=== PATIENT | female | born 1965 | race African-American/Black ===

== ENCOUNTER → 2017-03-13 | Outpatient (CLI) | payer OTHER ==
[~2017-03-13] MED LIST: ADVITAB3 PO; CART120C PO; CYCL10TA PO; DICY20TA10 PO; MAPA500C PO; PAMA50CA PO; PERI PO; TELM1TAB PO; VITA100064 PO
[2017-03-13 12:30] LABS: AUTOMATED NEUTROPHIL # 3.1 TH/MM3 (1.8-7.7); BASOPHIL % 0.7 % (0.0-2.0); EOSINOPHIL # 0.2 TH/MM3 (0-0.4); EOSINOPHIL % 2.5 % (0.0-4.0); HEMATOCRIT 40.8 % (35.0-46.0); HEMO FLAGS DIFF FINAL; LYMPH % 37.7 % (9.0-44.0); LYMPHOCYTE # 2.3 TH/MM3 (1.0-4.8); MEAN CORPUSCULAR HEMOGLOBIN 28.9 PG (27.0-34.0); MONO % 8.1 % (0.0-8.0); PLATELET COUNT 225 TH/MM3 (150-450); RED BLOOD COUNT 4.81 MIL/MM3 (4.00-5.30); RED CELL DISTRIBUTION WIDTH 14.6 % (11.6-17.2); WHITE BLOOD COUNT 6.2 TH/MM3 (4.0-11.0)
--- NOTE | 2017-03-13 12:46 | RADRPT ---
EXAM DATE/TIME: 03/13/2017 11:49 [place] COMPARISON: No previous studies available for comparison. INDICATIONS : Evaluate for pneumonia,pneumothorax and communicable diseases. Pre-op hysterectomy MEDICAL HISTORY : Hypertension. SURGICAL HISTORY : None. ENCOUNTER: Initial ACUITY: 1 day PAIN SCORE: 0/10 LOCATION: chest FINDINGS: PA and lateral views of the chest demonstrate the lungs to be symmetrically aerated without evidence of mass, infiltrate or effusion. The cardiomediastinal contours are unremarkable. Osseous structure s are intact. CONCLUSION: No acute disease. Kamar Hernandez MD on March 13, 2017 at 12:44 Board Certified Radiologist. This report was verified electronically.
[2017-03-13 12:57] LABS: BICARBONATE 28.7 MEQ/L (21.0-32.0); POTASSIUM 3.3 MEQ/L (3.5-5.1)
[2017-03-13 13:10] LABS: BLOOD, URINE TRACE (NEG); GLUCOSE,URINE NEG (NEG); KETONE, URINE NEG (NEG); MUCUS URINE FEW /lpf (OCC); NITRITE,URINE NEG (NEG); PH, URINE 6.5 (5.0-8.5); SQUAMOUS EPITHELIAL CELL URINE 1 /hpf (0-5); URINE COLOR LIGHT-YELLOW (YELLW/STRAW)
--- NOTE | 2017-03-13 15:13 | EKG ---
Date Performed: 03/13/2017 Time Performed: 11:15:02 PTAGE: 52 years EKG: Sinus rhythm LEFT ANTERIOR FASCICULAR BLOCK VOLTAGE CRITERIA FOR LVH ABNORMAL ECG NO PREVIOUS TRACING DOCTOR: Indira Morgan Interpretating Date/Time 03/13/2017 15:11:48
== END ==
LOC: CPRE 10:47
PROVIDERS: ATTEND Obstetrics & Gynecology
DX: Z01.810 Encounter for preprocedural cardiovascular examination (principal); Z01.811 Encounter for preprocedural respiratory examination; Z01.812 Encounter for preprocedural laboratory examination; R10.2 Pelvic and perineal pain; R94.31 Abnormal electrocardiogram [ECG] [EKG]
CPT/HCPCS: 36415; 71020; 80048; 81001; 85025; 93005

== ENCOUNTER 2017-03-19 05:32 | Observation (INO) | payer OTHER ==
[~2017-03-19] VITALS: Ht 172.7 cm; Wt 100.5 kg
[~2017-03-19 05:32] MED LIST changes: -PERI PO
[2017-03-19] MEDS ORDERED: POVIDONE IODINE 5% (ANTISEPSIS KIT) 4 APPLICATIONS EACH NARE PRN (06:45)
[2017-03-19] MEDS ORDERED: CHLORHEXIDINE GLUCONATE 2 % 1 PACK (2 CLOTHS) TOPICAL PRN (06:45)
[2017-03-19] MEDS ORDERED: SODIUM CHLORID 0.9% 500 ML IV PRN (06:45)
[2017-03-19] MEDS ORDERED: LACTATED RINGER'S 1000 ML IV PRN (06:45)
[2017-03-19] MEDS ORDERED: METOPROLOL TARTRATE 25 MG TAB PO PRN (06:45)
[2017-03-19] MEDS ORDERED: ACETAMINOPHEN 1000 MG/100 ML 100 ML IV ONE (06:47)
[2017-03-19] MEDS ORDERED: ceFAZolin 2 GM PREMIX 50 ML ONE (07:17)
[2017-03-19] MEDS ORDERED: BUPIVACAINE/EPINEPHRINE 0.5% PF 30 ML VIAL ONE (07:49)
[2017-03-19] MEDS ORDERED: metroNIDAZOLE 500 MG INJ 100 ML IV ONE (09:15)
[2017-03-19] MEDS ORDERED: NALOXONE HCL 0.4 MG/ML AMP IV PUSH PRN (11:15)
[2017-03-19] MEDS ORDERED: ONDANSETRON HCL 4 MG/2 ML VIAL IVP PRN (11:15)
[2017-03-19] MEDS ORDERED: MORPHINE SULFATE 30 MG/30 ML PCA IV SCH (11:15)
[2017-03-19] MEDS ORDERED: PROMETHAZINE HCL 25 MG TAB PO PRN (11:15)
[2017-03-19] MEDS ORDERED: SODIUM CHLORIDE 0.9% FLUSH 10 ML FLUSH IV FLUSH PRN (11:15)
[2017-03-19] MEDS ORDERED: PROPOFOL 500 MG/50 ML INJ 50 ML ONE (11:19)
[2017-03-19] MEDS ORDERED: DO NOT ADM ANY ANTICOAGULANT DRUGS PRN (11:28)
--- NOTE | 2017-03-19 11:28 | HHI.PR ---
cc: Antonio David MD Immediate Post Op Note Procedure Date: Mar 19, 2017 Pre Op Diagnosis: (1) Hydrosalpinx (2) Left lower quadrant pain Post Op Diagnosis: (1) Hydrosalpinx (2) Left lower quadrant pain (3) Intestinal adhesions Surgeon: Nicki Mcmahan MD; intraoperative General Surgery Consult with Dr. Antonio David MD (please see his separate dictated op note for his portion of the procedure) Senior Risk Manager(s): Abbi Farrar MD Procedure: Exam under anesthesia, operative laparoscopy, left salpingectomy; procedures performed by Dr. David please see separate operative note to include transverse colon bowel repair and extensive lysis of adhesions >60 minutes abdomen & pelvis Findings: severe abdominal and pelvic adhesive disease of intestines; right ovary normal atrophic appearance, minimal right fallopian tube visible consistent with history of tubal ligation; severe adhesions of atrophic right adnexa to pelvic sidewall; severe adhesions of left ovary to left pelvic sidewall and sigmoid colon; left hydrosalpinx able to be mobilized after extensive adhesiolysis and successfully removed Complications: entry by 5mm umbilical trochar into transverse colon; no contamination; repair performed laparoscopically by Dr. David after intraoperative consult; moderate degree Specimen(s) removed: left fallopian tube/hydrosalpinx Estimated blood loss: 15 mL Anesthesia: General Drains: None Fluids: 1800 mL IVF Urinary Output (mLs): 350 Patient to: PACU Patient Condition: Good Nicki Mcmahan MD Mar 19, 2017 11:28
[2017-03-19] MEDS ORDERED: ONDANSETRON HCL 4 MG/2 ML VIAL IV PUSH ONE (12:00)
[2017-03-19] MEDS ORDERED: ROCURONIUM INJ 50 MG/5 ML SYRINGE IV PUSH ONE (12:00)
[2017-03-19] MEDS ORDERED: NEOSTIGMINE 3 MG/3 ML SYR IV ONE (12:00)
[2017-03-19] MEDS ORDERED: LIDOCAINE HCL 1% PF 5 ML SYRINGE OTHER ONE (12:00)
[2017-03-19] MEDS ORDERED: DEXAMETHASONE SOD PHOS 4 MG/ML VIAL IV ONE (12:00)
[2017-03-19] MEDS ORDERED: PHENYLEPH/NS 1000 MCG/10 ML SYR IV ONE (12:00)
[2017-03-19] MEDS ORDERED: PROPOFOL 200 MG/20 ML AMP IV ONE (12:00)
[2017-03-19] MEDS ORDERED: KETOROLAC TROMETHAMINE 30 MG/ML (IVP) VIAL IV PUSH ONE (12:00)
[2017-03-19] MEDS ORDERED: LACTATED RINGER'S 1000 ML INJ 2,000 ML IV ONE (12:00)
[2017-03-19] MEDS ORDERED: ePHEDrine/NS 25 MG/5 ML SYR IV ONE (12:00)
[2017-03-19] MEDS ORDERED: GLYCOPYRROLATE 1 MG/5 ML SYRINGE IV PUSH ONE (12:00)
[2017-03-19] MEDS: SODIUM CHLOR 0.9% 1000 ML INJ 1,000 ML IV SCH ×2 (12:18→22:40)
[2017-03-19] MEDS ORDERED: SODIUM CHLORIDE 0.9% FLUSH 10 ML FLUSH IV FLUSH SCH (13:00)
[2017-03-19] MEDS ORDERED: LORazepam 0.5 MG TAB PO PRN (13:00)
[2017-03-19] MEDS ORDERED: diphenhydrAMINE HCL 25 MG CAP PO PRN (13:00)
[2017-03-19] MEDS ORDERED: oxyCODONE/ACETAMINOPHEN 5 MG/325 MG TAB PO PRN ×2 (13:00)
[2017-03-19 13:05] VITALS: BP 128/74; PULSE 67; RESP 18; TEMP 97.8
--- NOTE | 2017-03-19 13:09 | MP ---
cc: FLAKITA DIANE M.D. DATE OF SURGERY March 19, 2017 PREOPERATIVE DIAGNOSES 1. Left lower quadrant pain. 2. Left hydrosalpinx visualized preoperative imaging. 3. History of total hysterectomy. POSTOPERATIVE DIAGNOSES 1. Left lower quadrant pain. 2. Left hydrosalpinx visualized on preoperative imaging. 3. History of total hysterectomy. 4. Postop day #0. 5. Extensive intra-abdominal adhesive disease. INDICATIONS Yael Calvin is a 52-year-old para 4 who has a history of dyspareunia, more on the left side and left lower quadrant pain. She had a workup with a GI physician and with her primary care doctor. The only significant finding on imaging was suspected left hydrosalpinx on the left side. Her ovaries were within normal limits. Her hormone levels are premenopausal, although she does have on and off hot flashes. She desired surgical removal of abnormal tube. PROCEDURE PERFORMED 1. Exam under anesthesia. 2. Operative laparoscopy with complication. See below. 3. Left salpingectomy. 4. Separate surgeries performed including repair of transverse colon perforation and extensive lysis of adhesions performed by general surgeon, Dr. Antonio David MD. Please see his separate dictated operative note. Intraoperative consult. SURGEON Flakita Diane MD PSYCHOLOGY TEACHER SURGEON Abbi Farrar MD TYPE of ANESTHESIA General. ESTIMATED BLOOD LOSS 15 mL. IV FLUID REPLACEMENT 1800. URINE OUTPUT 350 mL of clear urine draining in the Tapia bag at the end of the procedure. PROPHYLAXIS Ancef 2g IV was given pre-operatively. After complication with injury to bowel Flagyl 500mg IV was given intraoperatively. SCDs were on and functioning throughout entire case. SPECIMEN Left fallopian tube including hydrosalpinx. COMPLICATIONS Accidental entry through the umbilical incision site into the transverse colon using 5-mm trocar. This was successfully repaired by intraoperative information systems consultant general surgeon Dr. Antonio David. Please see his dictated operative note for full details of that portion of the surgery. INTRAOPERATIVE FINDINGS Extensive adhesive disease of the small and large intestine to the anterior abdominal wall as well as to the pelvic sidewalls and to the vaginal cuff. The right fallopian tube and ovary were atrophic and somewhat stuck in the right ovarian fossa. The left ovary was adherent to both left ovarian fossa and the sigmoid colon. The left fallopian tube was swollen, edematous, consistent with hydrosalpinx. It was able to eventually be freed and successfully excised. PROCEDURE IN DETAIL After reviewing the informed consent, the patient was taken to the operating suite where a time-out was performed to identify the patient, the planned procedure, and any known allergies to drugs or drug products. The patient was placed in dorsal supine position and general anesthesia was administered without difficulty and found to be adequate. The patient was gently elevated into low lithotomy position in Tarik stirrups. Exam under anesthesia was performed with results as noted above. The abdomen and perineum were prepped and draped in normal sterile fashion. Attention was turned vaginally where a Tapia catheter was placed using sterile technique and a sponge stick was placed vaginally. The patient has previously had her uterus and cervix removed. Cuff was found to be intact with good support. Attention was then turned abdominally where approximately 3 mL of 0.5% bupivacaine with epinephrine were injected at the base of the umbilicus. A scalpel was used to make a 5-mm incision at this point. Using direct visual entry technique, the 5-mm trocar and scope were then introduced. On anatomic survey, it was noted that the trocar was within the bowel lumen. At this point the procedure was paused. Intraoperative consult with general surgeon, Dr. Antonio David, was called. Dr. David came in was able to successfully perform a laparoscopic repair of the bowel perforation as well as an extensive lysis of adhesions. Please see his separate dictated operative note for full details of that procedure. After Dr. David had completed his portion of the procedure, which included addition of three left sided 5 mm incisions with trochars in right upper, right mid, and right lower quadrant, an additional 5-mm trocar was placed without complication suprapubically after injection of additional 3 mL of 0.5% bupivacaine epinephrine. Using both blunt dissection and sharp using laparoscopic scissors the left fallopian tube, which was swollen and edematous consistent with hydrosalpinx, was able to be freed from the left pelvic sidewall and was successfully excised hemostatically using harmonic scalpel. Specimen was removed through one of the 5-mm trocars. Irrigation with suction was performed in all areas of the abdomen and pelvis. Eviseal was utilized in the area of extensive dissection along the left pelvic sidewall as well as overlying the vaginal cuff in the pelvis as well as over the repaired area of bowel. Excellent hemostasis was noted in all areas. It should be noted that the bowel perforation there was no contamination of bowel contents into the abdominal cavity. The gas was then turned off. All instruments were removed from the trocars. The abdomen was desufflated. The patient was brought back into level position. All trocars were removed without complication and the five incision sites were repaired with [id number] type sutures using 3-0 Vicryl. The skin was cleaned and dried and Steri-Strips were placed. Attention was then turned vaginally where the sponge stick was removed. The Tapia was left in place. The patient was brought back to dorsal supine position. She is awoken without complication. DISPOSITION Due to the complication of the procedure, the patient will stay overnight for observation status. MD ANN Jacobson/JANNY /11:53 AM /12:44 PM DEE
[2017-03-19] MEDS ORDERED: KETOROLAC TROMETHAMINE 30 MG/ML (IVP) VIAL IVP SCH (14:00)
[2017-03-19] MEDS: PCA - TOTAL MG MORPHINE DELIVERED PER SHIFT SCH ×2 (15:10→22:00)
[2017-03-19] MEDS: ACETAMINOPHEN 1000 MG/100 ML 100 ML IV SCH ×2 (15:18→21:10)
[2017-03-19 16:00] VITALS: BP 113/70; PULSE 64; RESP 18; TEMP 98; O2SAT 99
[2017-03-19] MEDS ORDERED: CLINDAMYCIN 900 MG/DEX PREMIX 50 ML IV SCH (16:00)
[2017-03-19] MEDS: CLINDAMYCIN 900 MG/NS PREMIX 50 ML IV SCH (16:33)
[2017-03-19] MEDS: metroNIDAZOLE 500 MG INJ 100 ML IV SCH (17:34)
[2017-03-19] MEDS: KETOROLAC TROMETHAMINE 30 MG/ML (IVP) VIAL IVP SCH ×2 (17:34→22:40)
[2017-03-19 19:43] VITALS: BP 121/68; PULSE 70; RESP 18; TEMP 98.1; O2SAT 97
[2017-03-19] MEDS: DOCUSATE SODIUM 50 MG/SENNA 8.6 MG TAB PO SCH (21:11)
[2017-03-20] MEDS: CLINDAMYCIN 900 MG/NS PREMIX 50 ML IV SCH ×2 (00:57→08:11)
[2017-03-20] MEDS: metroNIDAZOLE 500 MG INJ 100 ML IV SCH ×2 (00:57→08:11)
[2017-03-20 01:00] VITALS: BP 101/63; PULSE 63; RESP 16; TEMP 97.8; O2SAT 99
[2017-03-20] MEDS: ACETAMINOPHEN 1000 MG/100 ML 100 ML IV SCH ×2 (03:11→08:12)
[2017-03-20 05:00] VITALS: BP 99/64; PULSE 52; RESP 16; TEMP 97.9; O2SAT 99
[2017-03-20] MEDS: KETOROLAC TROMETHAMINE 30 MG/ML (IVP) VIAL IVP SCH ×2 (05:23→11:37)
[2017-03-20 05:56] LABS: AUTOMATED NEUTROPHIL # 10.4 TH/MM3 (1.8-7.7); BASOPHIL % 0.2 % (0.0-2.0); EOSINOPHIL % 0.1 % (0.0-4.0); HEMATOCRIT 35.1 % (35.0-46.0); HEMO FLAGS DIFF FINAL; LYMPH % 11.7 % (9.0-44.0); LYMPHOCYTE # 1.5 TH/MM3 (1.0-4.8); MEAN CORPUSCULAR HEMOGLOBIN 28.3 PG (27.0-34.0); MEAN CORPUSCULAR HGB CONC 33.3 % (32.0-36.0); MONO % 7.3 % (0.0-8.0); NEUT % 80.7 % (16.0-70.0); PLATELET COUNT 217 TH/MM3 (150-450); RED BLOOD COUNT 4.13 MIL/MM3 (4.00-5.30); RED CELL DISTRIBUTION WIDTH 14.5 % (11.6-17.2); WHITE BLOOD COUNT 12.9 TH/MM3 (4.0-11.0)
[2017-03-20 06:25] LABS: BICARBONATE 27.8 MEQ/L (21.0-32.0)
[2017-03-20 06:33] LABS: POTASSIUM 2.9 MEQ/L (3.5-5.1)
[2017-03-20] MEDS ORDERED: POTASSIUM CHLOR 20 MEQ PREMIX 100 ML IV SCH (07:45)
[2017-03-20 08:00] VITALS: BP 111/63; PULSE 52; RESP 16; TEMP 97.8; O2SAT 99
[2017-03-20] MEDS: DOCUSATE SODIUM 50 MG/SENNA 8.6 MG TAB PO SCH (08:12)
--- NOTE | 2017-03-20 08:23 | HHI.PR ---
Subjective Remarks Doing well, pain is well controlled with IV medications, tolerated clears overnight. Not hungry yet. No nausea of vomiting overnight, no fevers. NOTE: although title of note is "Post Op Hysterectomy Note" pt has already had hysterectomy in past, this is just a general postop DAIRY HUSBANDRY TEACHER note Objective Vital Signs Vital Signs Date Time Temp Pulse Resp B/P (MAP) Pulse Ox O2 Delivery O2 Flow Rate FiO2 03/20/17 05:00 97.9 52 16 99/64 (76) 99 03/20/17 01:00 97.8 63 16 101/63 (76) 99 03/19/17 22:00 16 03/19/17 19:43 98.1 70 18 121/68 (85) 97 03/19/17 16:00 98.0 64 18 113/70 (84) 99 03/19/17 15:10 16 03/19/17 13:05 97.8 67 18 128/74 (92) 03/19/17 12:40 97.9 69 17 110/60 (77) 98 Room Air 03/19/17 12:17 16 03/19/17 12:15 61 18 120/65 (83) 97 Room Air 03/19/17 12:00 60 18 116/64 (81) 96 Nasal Cannula 2 03/19/17 11:45 61 18 122/67 (85) 96 Nasal Cannula 2 03/19/17 11:30 63 18 117/66 (83) 96 Nasal Cannula 2 03/19/17 11:28 97.7 63 17 117/64 (81) 96 Nasal Cannula 2 I/O 03/19/17 03/19/17 03/19/17 03/20/17 03/20/17 03/20/17 07:00 15:00 23:00 07:00 15:00 23:00 Intake Total 1900 ml Output Total 665 ml 1250 ml 700 ml Balance 1235 ml -1250 ml -700 ml Intake IV Total 100 ml Other 1800 ml Output Urine Total 650 ml 1250 ml 700 ml Estimated Blood Loss 15 ml Result Diagram: 03/20/1745003/20/17450 Objective Remarks Chest is clear, regular rate and rhythm. Abdomen is soft and non-distended. 5 incision sites intact with steri-strips in place; minimal bleeding at umbilical incision only; not active; old BS present but scant. Ext no CCE. A/P Assessment and Plan Post Op Day 1 s/p complicated laparoscopy with severe adhesive disease of intestine to abdominal wall and pelvis, intraoperative consultation with General Surgeon Dr. Antonio David was performed due to bowel perforation with umbilical trochar at time of abdominal entry; successfully repaired laparoscopically 1) POD#1: pt doing moderately well, slowly advance diet today to ensure tolerates; Dr. David will be seeing pt as well; any additional recommendations per him appreciated; for now pt has voided, ambulated, incisions clean and dry; slight old blood overnight from umbilical incision, no active bleeding 2) hypokalemia: IV replacement ordered, will recheck labs this afternoon, d/w pt implications, AQA 3) dispo: not yet meeting criteria, hopefully this evening; will plan office f/ u 1 week with myself & with General Surgeon Nicki Quinonez MD Mar 20, 2017 08:23
[2017-03-20] MEDS ORDERED: PERI PO (08:25)
--- NOTE | 2017-03-20 08:34 | HHI.DS ---
Discharge Summary Admission Date Mar 19, 2017 at 11:21 Discharge Date: Mar 20, 2017 Admitting Diagnosis left lower quadrant pain, chronic pelvic pain, left hydrosalpinx (1) Left lower quadrant pain Diagnosis: Principal ICD Codes: R10.32 - Left lower quadrant pain (2) Hydrosalpinx Diagnosis: Principal ICD Codes: N70.11 - Chronic salpingitis (3) Intestinal adhesions Diagnosis: Secondary ICD Codes: K66.0 - Peritoneal adhesions (postprocedural) (postinfection) Procedures exam under anesthesia, operative laparoscopy, left salpingectomy; performed by Dr. David of general surgery: operative laparoscopy, extensive lysis of adhesions in abdomen and pelvis, laparoscopic repair of bowel injury Brief History 52 yo P4 seen and evaluated in the office on referral from PCP for chronic pelvic pain, left lower quadrant pain, finding on outside imaging of suspected bilateral hydrosalpinges on CT scan. On repeat ultrasound imaging in the office left hydrosalpinx visualized, normal right adnexa. Plan was for bilateral salpingo-oophorectomy due to inconsistent history, symptoms, and age. CBC/BMP: 03/20/17 0451 03/20/17 0451 Significant Findings Laboratory Tests Test 03/20/17 04:51 White Blood Count 12.9 TH/MM3 (4.0-11.0) Neutrophils (%) (Auto) 80.7 % (16.0-70.0) Neutrophils # (Auto) 10.4 TH/MM3 (1.8-7.7) Monocytes # (Auto) 1.0 TH/MM3 (0-0.9) Random Glucose 112 MG/DL (74-106) Calcium Level 8.0 MG/DL (8.5-10.1) Potassium Level 2.9 MEQ/L (3.5-5.1) Estimat Glomerular Filtration Rate 77 ML/MIN (>89) Hospital Course Patient had a complicated intraoperative course with unexpected finding of significant and severe adhesive disease of bowel to anterior abdominal wall up to the level of the left upper quadrant all the way down to the pelvic sidewalls and along the vaginal cuff. On entry into the abdomen through direct visual entry technique with 5mm trochar and camera, it was immediately identified that bowel had been entered, cause was paused and general surgery consult was placed, Dr. Antonio David was able to repair the lesion in the bowel laparoscopically and performed >60 min of adhesiolysis to properly visualize the abdomen and pelvis. Due to the extent of pelvic adhesive disease and normal appearance of right adnexa it was decided that only the abnormal pathology (left tube) would be removed and there was concern on risk of injury to ureter or sigmoid colon if left ovary or right adnexa were removed so these were left in place. Patient did well overnight POD#0 but AM labs showed hypokalemia. IV replacement was ordered. Once pt was ambulating, voiding, pain was well controlled and she was tolerating diet she was discharged to home with office f/u with in 1 week as well as with Dr. David in 1 week. Patient fully aware of extent of surgery and unexpected complication, all questions answered. Pt Condition on Discharge: Good Discharge Disposition: Discharge Home Discharge Instructions DIET: Follow Instructions for: As Tolerated, No Restrictions Activities you can perform: Non Weight Bearing, Shower Only-No Bath, Pelvic Rest Activities to avoid: Weight Bearing, Strenuous Activity, Driving (x 2 weeks) Nicki Mcmahan MD Mar 20, 2017 08:34
[2017-03-20] MEDS: POTASSIUM CHLOR 20 MEQ PREMIX 100 ML IV SCH ×2 (09:11→11:37)
--- NOTE | 2017-03-20 10:03 | MP ---
cc: RUSS DAVID MD DATE OF SURGERY 03/19/2017 PREOPERATIVE DIAGNOSIS Trocar through transverse colon, transverse colon colotomy. POSTOPERATIVE DIAGNOSIS Trocar through transverse colon, transverse colon colotomy, adhesions. PROCEDURE PERFORMED 1. Repair of colonic injury primarily in two layers. 2. Extensive lysis of adhesions greater than [address] Russ David WEB SERVICES MANAGER See OR sheet ANESTHESIA GETA IV FLUIDS See anesthesia sheet. ESTIMATED BLOOD LOSS Minimal DRAINS None COMPLICATIONS None WOUND CLASSIFICATION Clean, contaminated FINDINGS Significant multiple adhesions trocar site through bowel. No evidence of gross contamination. SPECIMEN None INDICATION The patient is a 52-year-old female who is undergoing examine under anesthesia, a left salpingectomy and laparoscopy by Dr. Mcmahan. Initial entry into the abdomen due to severe significant adhesions resulted in bowel injury, therefore intraoperative consultation to general surgery for evaluation and assistance with repair. PROCEDURE IN DETAIL The patient had already been intubated, prepped and draped in the usual sterile fashion and a time out had already been conducted. The patient was asleep on the surgical table when intraoperative consultation due to bowel injury was noted. I commenced scrubbing to evaluate the extent of injury. On laparoscopy, through the umbilical port, there was noted to be the presence of intraluminal bowel. Therefore, attention was then redirected to the left upper quadrant where a small stab adán incision was made. A Veress needle was used, intraoperative placement confirmed with saline drop test. Abdomen was insufflated to 50 mm pneumoperitoneum. A 5 mm visual port was used to enter the left upper quadrant. Upon entrance, there was noted to be significant expanse of adhesions containing the majority of the anterior abdominal wall due to previous surgical interventions. There was window on the left side of the abdomen and upon further examination, the trocar as perceived noted to be through the transverse colon of the bowel. Two other trocars placed, one left lower quadrant 5-mm trocar, followed by a left middle quadrant 5-mm trocar. Lysis of adhesions was continued to mobilize the bowel that was adhered up to the anterior abdominal wall near the umbilicus and where the trocar had been placed. Once appropriate length of bowel was exposed, again as noted, the small hole containing a trocar and what appeared to be transverse colon in the bowel. Intracorporeal suture was done in interrupted fashion to approximate the bowel. A second running Lembert stitch was done in order to close the bowel in two layers. There was no evidence of gross contamination and the bowel was noted to be very healthy and viable. After being content with our repair, further mobilization and lysis of adhesions was continued. The adhesions were done further mobilizing multiple portions of small bowel in order to assist in identification of ovaries and again to appropriately mobilize the bowel to obtain adequate exposure and view of the working area. After approximately 90 minutes of doing so, the case was then turned back over to Dr. Mcmahan for completion and commencement of her procedure of removal of the left hydrosalpinx. The patient tolerated the procedure. There were no complication with the general surgical portion. Again, the patient will remained intubated for completion. Dr. Mcmahan to dictate her portion of the procedure. MD JAMES Saez/BERNADETTE /8:31 PM /9:42 AM DEE
--- NOTE | 2017-03-20 10:35 | HHI.PR ---
Subjective Subjective Notes Resting in bed No issues RN at bedside Objective Vitals/I&O Vital Signs Date Time Temp Pulse Resp B/P (MAP) Pulse Ox O2 Delivery O2 Flow Rate FiO2 03/20/17 08:00 97.8 52 16 111/63 (79) 99 03/19/17 12:40 Room Air 03/19/17 12:00 2 Labs Laboratory Tests Test 03/20/17 04:51 White Blood Count 12.9 Red Blood Count 4.13 Hemoglobin 11.7 Hematocrit 35.1 Mean Corpuscular Volume 85.0 Mean Corpuscular Hemoglobin 28.3 Mean Corpuscular Hemoglobin Concent 33.3 Red Cell Distribution Width 14.5 Platelet Count 217 Mean Platelet Volume 8.4 Neutrophils (%) (Auto) 80.7 Lymphocytes (%) (Auto) 11.7 Monocytes (%) (Auto) 7.3 Eosinophils (%) (Auto) 0.1 Basophils (%) (Auto) 0.2 Neutrophils # (Auto) 10.4 Lymphocytes # (Auto) 1.5 Monocytes # (Auto) 1.0 Eosinophils # (Auto) 0.0 Basophils # (Auto) 0.0 CBC Comment DIFF FINAL Differential Comment Blood Urea Nitrogen 10 Creatinine 0.92 Random Glucose 112 Calcium Level 8.0 Sodium Level 141 Potassium Level 2.9 Chloride Level 104 Carbon Dioxide Level 27.8 Anion Gap 9 Estimat Glomerular Filtration Rate 77 Cardiovascular: Regular Lungs: Clear Abdomen: Other (lap sites c/d/i; abdomen soft ), Post-op tenderness Extremities: No edema A/P Assessment and Plan 52 year old female POD1 dx lap, LEFT salpingectomy (Dr. Mcmahan) and repair of colonic injury and MARIYA (Dr. David) -Regular diet -WBC elevated but likely post op -Afebrile -IS -Instructed patient to contact office with any fevers -Follow up with Dr. David in 1 week Attending Statement patient seen at bedside ok to advance diet patient doing well d/c planning Attestation The exam, history, and the medical decision-making described in the above note were completed with the assistance of the mid-level provider. I reviewed and agree with the findings presented. I attest that I had a [id number] encounter with the patient on the same day, and personally performed and documented my assessment and findings in the medical record. Jaki Raymond Mar 20, 2017 10:35 Antonio David MD Mar 26, 2017 21:06
[2017-03-20 11:51] VITALS: BP 133/72; PULSE 54; RESP 18; TEMP 98
[2017-03-20] MEDS ORDERED: POTASSIUM CHLORIDE 20 MEQ CONTROLLED RELEASE TAB PO ONE (12:15)
--- NOTE | 2017-03-20 15:54 | MB ---
cc: RUSS RYAN MD DATE OF CONSULTATION: 03/19/2017 REASON FOR CONSULTATION: Intraoperative bowel injury. HISTORY OF PRESENT ILLNESS The patient is a 52-year-old female who evidently was having a history of dyspareunia on the left side and left lower quadrant. She had workup with PCP and AUTOMOTIVE PARTS SPECIALIST finding a left hydrosalpinx. Therefore, operative discussion for examination under anesthesia and laparoscopic left salpingectomy by Dr. Mcmahan. The patient was already asleep on the table. Upon entrance into the abdominal cavity there was noted to be severe adhesions and trocar was placed intraluminal and into the colon of the bowel. Therefore, general surgery was consulted for assistance in management. On my exam, again the patient is intubated, stable otherwise and noted on first initial entrance into the abdomen due to severe adhesions, intraluminal bowel entrance would be a trocar. Otherwise further history obtained via the chart and staff. PAST MEDICAL HISTORY Hypertension, hypercholesteremia. PAST SURGICAL HISTORY Hysterectomy. SOCIAL HISTORY No evidence of smoking, ETOH or IVDA. ALLERGIES NO KNOWN DRUG ALLERGIES. MEDICATIONS See EMR. FAMILY HISTORY Unable to obtain. REVIEW OF SYSTEMS General: Unable to obtain. HEENT: Unable to obtain. Neck: Unable to obtain. Cardiovascular: Unable to obtain. Respiratory: Unable to obtain. Abdomen: Unable to obtain, abdominal pain per chart, dyspareunia. : Unable to obtain. Neurologic: Unable to obtain. PHYSICAL EXAMINATION General: The patient intubated, sedated intraoperatively. Skin: Warm and dry. Head: Normocephalic. ET tube in place. Neck: Supple. Lungs: Bilateral expansion via the vent. Heart: S1-S2 regular. Abdomen: Trocar in place, soft, incisional scars. Extremities: Warm, well-perfused. Vital signs: Temperature 98.4, pulse was 68, respirations 18, blood pressure 128/78, saturation 99% on ET tube. LABORATORY AND DIAGNOSTIC DATA Pending. ASSESSMENT The patient is a 52 year-old female with history of dyspareunia, hydrosalpinx intra-abdominal entrance due to severe adhesions with entrance into the intraluminal colon. PLAN Further assistance for intraoperative consultation and laparoscopic lysis of adhesions with repair of colon laparoscopically as there is no evidence of gross contamination and bowel otherwise appears healthy and viable. Thank you for consultation. MD JAMES Saez/MIYA /2:00 PM /3:11 PM
[2017-03-20] MEDS ORDERED: IBUPROFEN 600 MG TAB PO PRN (16:00)
[2017-03-20 16:50] VITALS: BP 114/73; PULSE 55; RESP 18; TEMP 98.3
[2017-03-20] MEDS ORDERED: FAMOTIDINE 20 MG TAB PO ONE (17:00)
[2017-03-20] MEDS ORDERED: ACETAMINOPHEN 500 MG CPLT PO ONE (17:00)
[2017-03-20 19:00] VITALS: BP 126/74; PULSE 60; RESP 18; TEMP 98.1
== END 2017-03-20 21:12 | disposition home or self-care (01) ==
LOC: HSDC 05:32 → HSDI 11:21 → H1EA 12:48
PROVIDERS: ADMIT Obstetrics & Gynecology; ATTEND Obstetrics & Gynecology
DX: R10.32 Left lower quadrant pain (principal); N70.11 Chronic salpingitis; K66.0 Peritoneal adhesions (postprocedural) (postinfection); K91.72 Accidental puncture and laceration of a digestive system organ or structure during other procedure; R10.2 Pelvic and perineal pain; N83.8 Other noninflammatory disorders of ovary, fallopian tube and broad ligament; E87.6 Hypokalemia; I10 Essential (primary) hypertension; E78.00 Pure hypercholesterolemia, unspecified; Z90.710 Acquired absence of both cervix and uterus; Y65.8 Other specified misadventures during surgical and medical care
CPT/HCPCS: 00840; 44238; 58661; 80048; 84132; 85025; 86850; 86900; 86901; 88305; 94150; 96361; 96374; 96375; 96376; G0378; J0131; J0690; J1100; J1885; J2270; J2370; J2405; J2710; J3010; J3480; J7030; J7120